=== PATIENT | female | born 1965 | race Two or more races ===

== ENCOUNTER 2017-01-01 23:06 | Emergency (ER) | payer OTHER ==
[~2017-01-01] VITALS: Ht 170.2 cm; Wt 116.3 kg
[2017-01-01 23:43] LABS: HEMATOCRIT 37.2 % (36.0-46.0); MCH 26.2 PG (29.0-34.0); MCHC 31.5 G/DL (30.0-36.0); MCV 83.4 FL (83-99); PLATELET COUNT 433 K/uL (156-360); RBC DIS.WIDTH-CV 15.7 % (11.8-14.6); RBC DIS.WIDTH-SD 46.5 % (39-53); RED BLOOD COUNT 4.46 M/uL (3.80-5.20); WHITE BLOOD COUNT 6.2 K/uL (4.1-10.2)
[2017-01-01 23:53] LABS: ADD MIUA? NO; BILIRUBIN NEGATIVE; BLOOD NEGATIVE; COLOR YELLOW ((YELLOW)); GLUCOSE (STRIP) NEGATIVE; KETONES NEGATIVE; LEUKOCYTES NEGATIVE; NITRITE NEGATIVE; PROTEIN (STRIP) NEGATIVE; SPECIFIC GRAVITY 1.012 (1.000-1.030); UCUL ADDED? NO; UROBILINOGEN 0.2 MG/DL (0.2-1.0)
[2017-01-02 00:13] LABS: AMPHETAMINE NEGATIVE (500 ng/mL); BARBITURATES NEGATIVE (200 ng/mL); BENZODIAZEPINES NEGATIVE (150 ng/mL); COCAINE NEGATIVE (150 ng/mL); INTERNAL CONTROLS VALID? YES; METHADONE NEGATIVE (200 ng/mL); METHAMPHETAMINE NEGATIVE (500 ng/mL); OPIATES (MORPHINE) NEGATIVE (100 ng/mL); OXYCODONE NEGATIVE (100 ng/mL); PHENCYCLIDINE NEGATIVE (25 ng/mL); PROPOXYPHENE NEGATIVE (300 ng/mL); THC CANNABINOIDS NEGATIVE (50 ng/mL); TRICYCLIC ANTIDEPRESSANTS NEGATIVE (300 ng/mL)
[2017-01-02 00:22] LABS: CHLORIDE 113 mEq/L (99-109); POTASSIUM 3.8 mEq/L (3.7-5.4); SODIUM 145 mEq/L (136-147)
[2017-01-02 00:24] LABS: GLUCOSE 93 mg/dL (70-99)
[2017-01-02 00:25] LABS: ANION GAP 9 MEQ/L (2-14)
[2017-01-02 00:27] LABS: SERUM ETHYL ALCOHOL 222 mg/dL
[2017-01-02 00:28] LABS: GFR ESTIMATE (CALCULATED) > 59 mL/min/; UREA NITROGEN (BUN) 10 mg/dL (9-23)
[2017-01-02 05:11] VITALS: BP 166/91
== END 2017-01-02 05:11 | disposition home or self-care (01) ==
LOC: EME 23:06
PROVIDERS: Emergency Medicine
DX: F32.9 Major depressive disorder, single episode, unspecified (principal); F10.129 Alcohol abuse with intoxication, unspecified; Y90.7 Blood alcohol level of 200-239 mg/100 ml; Z72.0 Tobacco use
CPT/HCPCS: 80048; 81003; 85027; 90837; 99281; 99285; G0480

== ENCOUNTER 2017-03-27 14:24 | Emergency (ER) | payer OTHER ==
[~2017-03-27] VITALS: Ht 170.2 cm; Wt 112.5 kg
[2017-03-27] MEDS ORDERED: LISINOPRIL20 MG PO (14:49)
[2017-03-27] MEDS ORDERED: OMEPRAZOLE20 MG PO (14:50)
[2017-03-27] MEDS ORDERED: GABAPENTIN600 MG PO (14:51)
[2017-03-27] MEDS ORDERED: LOPRESSOR50 MG PO (14:51)
[2017-03-27 16:05] LABS: SERUM ETHYL ALCOHOL 230 mg/dL
[2017-03-27 21:33] LABS: ADD MIUA? NO; BILIRUBIN NEGATIVE; BLOOD NEGATIVE; COLOR YELLOW ((YELLOW)); GLUCOSE (STRIP) NEGATIVE; KETONES NEGATIVE; LEUKOCYTES NEGATIVE; NITRITE NEGATIVE; PROTEIN (STRIP) NEGATIVE; SPECIFIC GRAVITY 1.009 (1.000-1.030); UCUL ADDED? NO; UROBILINOGEN 0.2 MG/DL (0.2-1.0)
[2017-03-27 21:52] LABS: ANION GAP 14 MEQ/L (2-14); CHLORIDE 109 MEQ/L (99-109); POTASSIUM 3.6 MEQ/L (3.7-5.4); SODIUM 144 MEQ/L (136-147)
[2017-03-27 21:57] LABS: GFR ESTIMATE (CALCULATED) > 59 mL/min/; GLUCOSE 75 mg/dL (70-99); UREA NITROGEN (BUN) 11 mg/dL (9-23)
[2017-03-27 22:03] LABS: AMPHETAMINE NEGATIVE (500 ng/mL); BARBITURATES NEGATIVE (200 ng/mL); BENZODIAZEPINES NEGATIVE (150 ng/mL); COCAINE NEGATIVE (150 ng/mL); INTERNAL CONTROLS VALID? YES; METHADONE NEGATIVE (200 ng/mL); METHAMPHETAMINE NEGATIVE (500 ng/mL); OPIATES (MORPHINE) NEGATIVE (100 ng/mL); OXYCODONE NEGATIVE (100 ng/mL); PHENCYCLIDINE NEGATIVE (25 ng/mL); PROPOXYPHENE NEGATIVE (300 ng/mL); THC CANNABINOIDS NEGATIVE (50 ng/mL); TRICYCLIC ANTIDEPRESSANTS NEGATIVE (300 ng/mL)
[2017-03-27 22:54] LABS: HEMATOCRIT 41.3 % (36.0-46.0); MCH 27.4 PG (29.0-34.0); MCHC 30.8 G/DL (30.0-36.0); MCV 89.2 FL (83-99); MEAN PLAT.VOLUME 9.4 uM^3 (9.5-12.4); PLATELET COUNT 443 K/uL (156-360); RBC DIS.WIDTH-CV 19.3 % (11.8-14.6); RBC DIS.WIDTH-SD 62.2 % (39-53); RED BLOOD COUNT 4.63 M/uL (3.80-5.20); WHITE BLOOD COUNT 7.2 K/uL (4.1-10.2)
[2017-03-28] MEDS ORDERED: GABAPENTIN600 MG PO (12:33)
[2017-03-28] MEDS ORDERED: NORVASC10 MG PO (12:34)
[2017-03-28] MEDS ORDERED: MELOXICAM15 MG PO (12:34)
[2017-03-28] MEDS ORDERED: FLUOXETINE HCL40 MG PO (12:35)
[2017-03-28] MEDS ORDERED: ASPIR-LOW81 MG PO (12:36)
[2017-03-28 17:43] VITALS: BP 174/76
== END 2017-03-28 18:27 ==
LOC: EME 14:24
PROVIDERS: Emergency Medicine
DX: F33.2 Major depressive disorder, recurrent severe without psychotic features (principal); F10.129 Alcohol abuse with intoxication, unspecified; Y90.7 Blood alcohol level of 200-239 mg/100 ml; R45.851 Suicidal ideations; Z62.810 Personal history of physical and sexual abuse in childhood; Z72.0 Tobacco use
CPT/HCPCS: 80048; 80048 91; 81003; 85027; 90837; 99281; 99285; G0480

== ENCOUNTER 2017-04-03 11:42 | Emergency (ER) | payer OTHER ==
[~2017-04-03] VITALS: Ht 170.2 cm; Wt 115.5 kg
[~2017-04-03 11:42] MED LIST: ASPIR-LOW81 MG PO; FLUOXETINE HCL40 MG PO; GABAPENTIN600 MG PO; LISINOPRIL20 MG PO; LOPRESSOR50 MG PO; MELOXICAM15 MG PO; NORVASC10 MG PO; OMEPRAZOLE20 MG PO
[2017-04-03 11:48] VITALS: BP 135/65
[2017-04-03] MEDS ORDERED: MOTRIN800 MG PO (12:45)
== END 2017-04-03 13:18 | disposition home or self-care (01) ==
LOC: EME 11:42 → EXP 11:42
PROC: 2W3RX1Z Immobilization of Left Lower Leg using Splint (ICD-10-PCS; principal; 2017-04-03)
DX: S82.832A Other fracture of upper and lower end of left fibula, initial encounter for closed fracture (principal); W17.81XA Fall down embankment (hill), initial encounter; Y92.89 Other specified places as the place of occurrence of the external cause
CPT/HCPCS: 99281; 99284

== ENCOUNTER 2018-01-28 21:03 | Emergency (ER) | payer OTHER ==
[~2018-01-28] VITALS: Ht 170.2 cm; Wt 126.2 kg
[~2018-01-28 21:03] MED LIST changes: +MOTRIN800 MG PO
[2018-01-28] MEDS ORDERED: MOTRIN800 MG PO (21:53)
[2018-01-28 23:05] VITALS: BP 137/86
== END 2018-01-28 23:07 | disposition home or self-care (01) ==
LOC: EME 21:03
PROC: 2W3RX1Z Immobilization of Left Lower Leg using Splint (ICD-10-PCS; principal; 2018-01-28)
DX: M19.072 Primary osteoarthritis, left ankle and foot (principal); I10 Essential (primary) hypertension; Z79.82 Long term (current) use of aspirin; Z88.0 Allergy status to penicillin; F17.200 Nicotine dependence, unspecified, uncomplicated
CPT/HCPCS: 73610; 99281; 99284; J1885

== ENCOUNTER 2018-04-23 19:59 | Inpatient (IN) | payer OTHER ==
[~2018-04-23] VITALS: Ht 170.2 cm; Wt 127.2 kg
[2018-04-23 21:23] LABS: AMPHETAMINE NEGATIVE (500 ng/mL); BARBITURATES NEGATIVE (200 ng/mL); BENZODIAZEPINES NEGATIVE (150 ng/mL); BUPRENORPHINE NEGATIVE (10 ng/mL); COCAINE NEGATIVE (150 ng/mL); METHADONE NEGATIVE (200 ng/mL); METHAMPHETAMINE NEGATIVE (500 ng/mL); OPIATES (MORPHINE) NEGATIVE (100 ng/mL); OXYCODONE NEGATIVE (100 ng/mL); PHENCYCLIDINE NEGATIVE (25 ng/mL); PROPOXYPHENE NEGATIVE (300 ng/mL); THC CANNABINOIDS NEGATIVE (50 ng/mL); TRICYCLIC ANTIDEPRESSANTS NEGATIVE (300 ng/mL)
[2018-04-23 21:51] LABS: HEMATOCRIT 38.4 % (36.0-46.0); MCH 27.8 PG (29.0-34.0); MCHC 31.3 G/DL (30.0-36.0); MCV 89.1 FL (83-99); PLATELET COUNT 336 K/uL (156-360); RBC DIS.WIDTH-CV 17.2 % (11.8-14.6); RBC DIS.WIDTH-SD 55.9 % (39-53); RED BLOOD COUNT 4.31 M/uL (3.80-5.20); WHITE BLOOD COUNT 5.3 K/uL (4.1-10.2)
[2018-04-23 22:08] LABS: CHLORIDE 110 mEq/L (99-109); POTASSIUM 3.9 mEq/L (3.7-5.4); SODIUM 142 mEq/L (136-147)
[2018-04-23 22:09] LABS: GLUCOSE 89 mg/dL (70-99)
[2018-04-23 22:13] LABS: CREATININE 0.6 mg/dL (0.6-1.3); GFR ESTIMATE (CALCULATED) > 59 mL/min/; SERUM ETHYL ALCOHOL 275 mg/dL
[2018-04-23 22:15] LABS: UREA NITROGEN (BUN) 7 mg/dL (9-23)
[2018-04-23 22:17] LABS: ACETAMINOPHEN (TYLENOL) < 10 mcg/mL (10-30); SALICYLATE < 5.0 MG/DL (15-30)
[2018-04-24 09:46] VITALS: BP 172/79
[2018-04-24 16:20] VITALS: BP 114/54
[2018-04-25 07:53] VITALS: BP 115/58
[2018-04-25] MEDS ORDERED: BUPROPION XL150 MG PO (10:54)
[2018-04-25] MEDS ORDERED: FOLIC ACID1 MG PO (10:54)
[2018-04-25] MEDS ORDERED: Thiamine,Vitamin B1 PO (10:54)
== END 2018-04-25 14:24 | disposition home or self-care (01) | DRG 885 ==
LOC: EME 19:59 → ENRESERV 04-24 07:55 → EDOF 04-24 07:55 → 1WEST 04-24 07:55
PROVIDERS: Emergency Medicine
PROC: HZ2ZZZZ Detoxification Services for Substance Abuse Treatment (ICD-10-PCS; principal; 2018-04-24)
DX: F33.1 Major depressive disorder, recurrent, moderate (principal); R45.851 Suicidal ideations; F10.221 Alcohol dependence with intoxication delirium; F10.239 Alcohol dependence with withdrawal, unspecified; Z68.41 Body mass index [BMI] 40.0-44.9, adult; K21.9 Gastro-esophageal reflux disease without esophagitis; I10 Essential (primary) hypertension; F17.210 Nicotine dependence, cigarettes, uncomplicated; Y90.8 Blood alcohol level of 240 mg/100 ml or more; G47.00 Insomnia, unspecified; E66.9 Obesity, unspecified; F10.229 Alcohol dependence with intoxication, unspecified; F41.9 Anxiety disorder, unspecified; G62.9 Polyneuropathy, unspecified; M54.9 Dorsalgia, unspecified; Z88.0 Allergy status to penicillin
CPT/HCPCS: 80048; 85027; 90837; 99281; 99284; G0480